=== PATIENT | male | born 1970 | race Caucasian/White ===

== ENCOUNTER 2019-10-20 11:54 | Emergency (ER) | payer OTHER, SELFPAY ==
[2019-10-20 12:03] VITALS: BP 119/88; PULSE 92; RESP 16; TEMP 36.9; O2SAT 98
--- NOTE | 2019-10-20 12:29 | ED.ALLEREA ---
HPI - Allergic Reaction General Chief complaint: Allergic Reaction Stated complaint: allergic reaction to meds Time Seen by Provider: 10/20/19 12:18 Source: patient and RN notes reviewed Mode of arrival: ambulatory Limitations: no limitations History of Present Illness HPI narrative: Patient presents today planing of pruritic rash and facial swelling that began 5 days ago. Patient is allergic to latex. He was using some spray on latex at home around his pool and developed this rash and facial swelling. He subsequently developed some abdominal pain and went to the [facility] ER for treatment. He has history of angioedema in the past. This episode he was placed on 5 days of prednisone, 20 mg 3 times daily. He has not taken any of his doses today. He takes Joceline daily and has been taking Benadryl occasionally. His last dose was yesterday. He has been continuing to work outside with this rash and states the sun makes it worse. He denies any shortness of breath, difficulty swallowing, scratchiness in the throat currently. MD complaint: allergic reaction, hives and facial swelling Related Data Home Medications Medication Instructions Recorded Confirmed alprazolam 0.5 mg tablet 0.5 mg PO DAILY 03/28/19 10/20/19 omeprazole magnesium 20 mg 20 mg PO DAILY 03/28/19 10/20/19 capsule,delayed release paroxetine HCl 20 mg PO DAILY 10/20/19 10/20/19 Allergies Allergy/AdvReac Type Severity Reaction Status Date / Time latex Allergy Hives Verified 10/20/19 12:09 Review of Systems Review of Systems: Narrative: CONSTITUTIONAL: Denies body aches, fever, chills, or sweats. EYES: Denies visual changes, redness, or discharge. ENT: Denies rhinorrhea, congestion, sore throat, or otalgia.+ Facial swelling CARDIOVASCULAR: Denies chest pain, palpitations, or edema. RESPIRATORY: Denies cough or dyspnea. GASTROINTESTINAL: Denies abdominal pain, nausea, vomiting, or diarrhea. GENITOURINARY: Denies dysuria or hematuria. SKIN: Denies wounds.+ Pruritic rash MUSCULOSKELETAL: Denies back pain, joint pain, or myalgia. NEUROLOGIC: Denies headache, numbness, tingling, or weakness. PSYCH: Denies depression or anxiety. [facility] Past Medical History Medical History (Updated 10/20/19 @ 12:46 by Susan Mcintosh, [facility], ) Anemia Angioedema Arthritis Ascending aortic aneurysm MCCAIN (dyspnea on exertion) Dyslipidemia Psychiatric disorder Family History Family History (Updated 12/07/17 @ 08:12 by DOCTOR UNKNOWN) Mother Family history of kidney disease Depression Family history of renal failure Father Family history of malignant neoplasm of esophagus Family history of malignant neoplasm Social History Social History Smoking status: Former smoker Alcohol intake: current Comments At time of signature, I have reviewed and agree with nursing past medical, surgical, social and family history unless otherwise noted. Please see nursing chart for further information. There is no relevant family history pertinent to the presenting complaint Exam Narrative: Exam Narrative: GENERAL: Well-appearing, well-nourished, and in no acute distress. HEAD: Normocephalic, atraumatic. EYES: EOMI. PERRL. Mild swelling circumorbitally bilaterally. No redness or drainage. Conjunctivae normal. ENT: Mucous membranes pink and moist. Nares clear. No rhinorrhea. TMs normal bilaterally. Throat normal. Uvula midline. NECK: Normal AROM. Supple. No lymphadenopathy. CHEST: No respiratory distress. Clear to auscultation. HEART: Regular rate and rhythm. No murmur appreciated. Normal peripheral pulses. ABDOMEN: Soft, nontender, nondistended, normal active bowel sounds. MUSCULOSKELETAL: No bony tenderness. EXTREMITIES: Normal range of motion. No edema. SKIN: Warm, dry. Capillary refill normal. Normal skin turgor. Mild urticarial rash, generalized. NEURO: No focal deficits. Alert and oriented x3. Gait steady. PSYCH: Normal affect. No signs of dep
== END 2019-10-20 12:47 | disposition home or self-care (01) ==
PROVIDERS: Emergency Provider Nurse Practitioner; PCP Emergency Medicine
DX: T78.3XXA Angioneurotic edema, initial encounter (principal)
CPT/HCPCS: 96372; 99213; G0463; J1100

== ENCOUNTER 2020-06-09 12:48 | Outpatient (CLI) | payer OTHER, SELFPAY | END 2020-06-09 12:49 | disposition home or self-care (01) | LOC: ANHAUDIO 12:55 → ANHAUDASC 13:36 | PROVIDERS: PCP Emergency Medicine; Visit Provider Emergency Medicine | DX: H93.13 Tinnitus, bilateral (principal) | CPT/HCPCS: 92557; 92567 ==

== ENCOUNTER 2020-08-12 17:43 | Emergency (ER) | payer OTHER, SELFPAY ==
--- NOTE | 2020-08-12 17:48 | ED.EAR ---
HPI - Ear Problem General Chief complaint: Ear Stated complaint: tinnitus/nausea/dizzy Time Seen by Provider: 08/12/20 17:49 Source: patient Mode of arrival: ambulatory Limitations: no limitations History of Present Illness HPI Narrative: Glendy is a 49 yo male with a PMH of anxiety, high cholesterol, GERD, depression, who comes to express care with complaints of tinnitus for 5 months and intermittent dizziness. states ear are hurting - 11/20 today Related Data Home Medications Medication Instructions Recorded Confirmed alprazolam 0.5 mg tablet 0.5 mg PO HS 03/28/19 08/12/20 paroxetine HCl 20 mg PO DAILY 10/20/19 08/12/20 fenofibrate 160 mg tablet 160 mg PO DAILY 04/30/20 08/12/20 cetirizine 10 mg PO DAILY 08/12/20 08/12/20 omeprazole 20 mg PO DAILY 08/12/20 08/12/20 Allergies Allergy/AdvReac Type Severity Reaction Status Date / Time latex Allergy Hives Verified 08/12/20 17:49 Review of Systems Review of Systems: Narrative: CONSTITUTIONAL: Denies fever, chills, sweats. EYES: Denies visual changes, redness, discharge. ENT: Denies rhinorrhea, congestion, sore throat, bilateral otalgia. CARDIOVASCULAR: Denies chest pain, palpitations, edema. RESPIRATORY: Denies dyspnea, wheezing, cough GASTROINTESTINAL: Denies abdominal pain, nausea, vomiting, diarrhea. GENITOURINARY: Denies dysuria, hematuria, abnormal discharge SKIN: Denies rash or itching. NEUROLOGIC: Denies numbness, or focal weakness.has vertigi PSYCHIATRIC: Denies anxiety or depression. [facility] Past Medical History Medical History (Updated 08/12/20 @ 18:06 by Brittney Venegas CNP) Anemia Angioedema Arthritis Ascending aortic aneurysm MCCAIN (dyspnea on exertion) Dyslipidemia Psychiatric disorder Tinnitus Family History Family History Mother Family history of kidney disease Depression Family history of renal failure Father Family history of malignant neoplasm of esophagus Family history of malignant neoplasm Social History Social History Smoking status: Current every day smoker Alcohol intake: current Comments At time of signature, I agree with nursing past medical, surgical, social and family history. There is no relevant family history pertinent to the presenting complaint. Exam Narrative: Exam Narrative: GENERAL: This is a well-nourished, well-developed patient, in mild distress. HEAD: normocephalic, atraumatic. EYES:. Sclera clear/white. Vision is grossly intact. EARS: External ears normal, auditory canals clear small amount of blood in ear canal bilateral (he flushed ears last few days). TMs normal without perforation. Some fluid behind R TM. Hearing grossly intact. NOSE: External nose normal without nasal discharge, nares without redness, no rhinorrhea. THROAT: Mucous membranes moist, NECK: Neck supple, non-tender CARDIOVASCULAR: Regular rate and rhythm without murmurs, gallops, or rubs. RESPIRATORY: Clear to auscultation. Breath sounds equal bilaterally. No wheezes, rales, or rhonchi. GASTROINTESTINAL: Abdomen soft, non-tender, SKIN: warm, intact with no suspicious lesions or rash, good texture and turgor. NEURO: awake, alert, and oriented to person, place and time. There were no obvious focal neurologic abnormalities. Steady gait. cranial nerves are grossly intact EXTREMITIES: Normal range of motion. BACK: Nontender without deformity Course Course Emergency Course: hx of vertigo- going to [employer] this month - he talked with pcp- 5 month hx of tinnitus, some nausea, pain Started on polymixin, zofran, meclizine instructed to hold off flushing ears and allow canals to heal Vital Signs Vital signs: Vital Signs Temperature 97.3 F L 08/12/20 17:53 Pulse Rate 85 08/12/20 17:53 Respiratory Rate 16 08/12/20 17:53 Blood Pressure 119/92 H 08/12/20 17:53 Pulse Oximetry 100 08/12/20 17:53 Temperatu
[2020-08-12 17:53] VITALS: BP 119/92; PULSE 85; RESP 16; TEMP 36.3; O2SAT 100
[2020-08-12 17:59] VITALS: BP 119/92; PULSE 85; RESP 16; TEMP 36.3; O2SAT 100
== END 2020-08-12 18:11 | disposition home or self-care (01) ==
PROVIDERS: Emergency Provider Nurse Practitioner; PCP Emergency Medicine
DX: H93.13 Tinnitus, bilateral (principal); H81.13 Benign paroxysmal vertigo, bilateral; M19.90 Unspecified osteoarthritis, unspecified site; E78.5 Hyperlipidemia, unspecified; F29 Unspecified psychosis not due to a substance or known physiological condition
CPT/HCPCS: 99213; G0463

== ENCOUNTER 2020-09-01 03:34 | Observation (INO) | payer OTHER, SELFPAY ==
[2020-09-01] VITALS (9 sets, daily range): BP systolic 112–121; BP diastolic 72–83; PULSE 63–87; RESP 18; TEMP 36–36.7; O2SAT 94–100; BMI 26.9
--- NOTE | 2020-09-01 | ECHO_ITS ---
Patient Info Name: Duran Klein Age: 49 years : 1970 Gender: Male Ht: 68 in Wt: 177 lbs BSA: 1.98 m2 HR: 74 bpm BP: 121 / 80 mmHg Technical Quality: Good Exam Date: 09/01/2020 10:13 AM Exam Location: [facility] Pulmonary Exam Room: 202 Patient Status: Inpatient Admit Date: 09/01/2020 Staff Ordering Physician: Oswaldo Leonardo DO Smash Piecer: Thersea Segovia RDCS Attending Provider: Jakob Reid MD Referring Physician: Jorden COLE; Exam Type: CA echo doppler color flow Study Info Indications - CHEST PAIN MCCAIN Complete two-dimensional, color flow and Doppler transthoracic echocardiogram is performed. Summary 1. Complete two-dimensional, color flow and Doppler transthoracic echocardiogram is performed. 2. Left ventricular chamber dimension is normal. 3. Left ventricular systolic function is normal, estimated at 60-65%. 4. The left ventricular diastolic function is grade I diastolic dysfunction. 5. E/e' 11 is mildly elevated. 6. Left atrial chamber dimension is mildly enlarged. 7. There is mild aortic valve regurgitation. 8. There is mild mitral valve regurgitation. 9. There is trace tricuspid valve regurgitation. 10. No pulmonary hypertension, estimated pulmonary arterial systolic pressure is 32 mmHg. 11. There is trace pulmonic regurgitation. Left Ventricle E/e' 11 is mildly elevated. Left ventricular chamber dimension is normal. Left ventricular systolic function is normal, estimated at 60-65%. The left ventricular diastolic function is grade I diastolic dysfunction. Right Ventricle Right ventricular systolic function is normal with normal TAPSE 1.8 cm. Right ventricular chamber dimension is normal. Left Atria Left atrial chamber dimension is mildly enlarged. Right Atria Right atrial chamber dimension is normal. Aortic Valve The aortic valve is trileaflet. There is no aortic valve stenosis. There is mild aortic valve regurgitation. Pulmonic Valve There is trace pulmonic regurgitation. Mitral Valve There is no mitral valve stenosis. There is mild mitral valve regurgitation. Tricuspid Valve There is trace tricuspid valve regurgitation. No pulmonary hypertension, estimated pulmonary arterial systolic pressure is 32 mmHg. Pericardium/Pleural There is no pericardial effusion. Inferior Vena Cava Normal inferior vena cava with >50% collapse upon inspiration consistent with normal right atrial pressure, 5 mmHg. Aorta The aortic root size at the sinus of Valsalva is normal. Left Ventricular Outflow Tract Name Value Normal LVOT 2D LVOT Diameter 2.1 cm LVOT Doppler LVOT Peak Gradient 5 mmHg LVOT Mean Gradient 3 mmHg LVOT VTI 24 cm LVOT VTI/AV VTI Ratio 1.1 LVOT Stroke Volume 83 ml LVOT CO 17.6 l/min LVOT CI 8.9 l/min/m2 Pulmonic Valve Name
--- NOTE | ~2020-09-01 | NM_ITS ---
EXAMINATION: NM hans stress w perfusion DATE: 09/01/2020 13:25 INDICATION: Chest pain. TECHNIQUE: Rest images were obtained following intravenous administration of 10.9 mCi Tc99m tetrofosm in (Myoview). The patient was infused intravenously with Lexiscan (regadenoson). Then, 33.8 mCi Tc99m tetrofosmin (Myoview) was administered intravenously, and stress images were obtained. Data was porfirio nstructed into short axis and horizontal and vertical long axis SPECT images. Gated SPECT images were also obtained. COMPARISON: Chest CT 06/09/2019 FINDINGS: There is no definite reversible or fixed perfusion abnormality to suggest ischemia or infar ction. There is no segmental wall motion abnormality. Left ventricular ejection fraction measures 6 9%. IMPRESSION: 1. No definite ischemia or infarct. 2. Normal left ventricular ejection fraction measuring 69%. Reviewed, dictated and finalized at location B.
--- NOTE | 2020-09-01 02:49 | PC.NURSE ---
This patient, Duran Klein, was admitted to IMU Room 202-01. Patient/family oriented to hospital policies and general routines including ID bracelet, bed and alarms, visiting hours, pain management, procedures, bathroom and other care routines, personal items, smoking policy, room service/diet, and visiting hours. Valuables list has been completed. Information on how to activate the Rapid Response Team has been discussed. Patient/Family are encouraged to report perceived risks to care and to ask questions if they do not understand what they are told or what they should do.
--- NOTE | 2020-09-01 03:01 | ECG_ITS ---
Measurements Intervals [place] Rate: 62 P: 14 MO: 190 QRS: 27 QRSD: 90 T: 30 QT: 382 QTc: 388 Interpretive Statements SINUS RHYTHM NORMAL ECG Electronically Signed On 09-03-2020 12:45:45 CDT by Oswaldo Leonardo D.O.
--- NOTE | 2020-09-01 03:39 | PM.IMHP ---
H&P: HPI History of Present Illness Date/Time: 09/01/20 03:39 Chief Complaint: Exertional chest pain over the past 5 days++ Narrative: This is a pleasant 49 year old male with known history of a 4 cm ascending thoracic aneurysm, hyperlipidemia, and depression who presented to the hospital as a direct admission from [facility] for chest pain. The patient presented to [facility] yesterday secondary to severe exertional chest pain for the past 5 days. The patient has noticed a pressure like midsternal chest pain that radiates across his chest with any exertion. Associated symptoms include palpitations, tachycardia, and shortness of breath. He denies any nausea, vomiting, dizziness, or diaphoresis. The patient denies any past history of CAD, stress testing, or angiography. He is known to vape but previously was smoking 1/4 ppd. He also previously was a heavy alcohol drinker in his 30s and 40s and quit drinking alcohol about 1 year ago. He denies any other symptoms such as cough, fever, abdominal pain, nausea, vomiting, dysuria, hematuria, diarrhea, rectal bleeding, or LE swelling. Dr. Leonardo, Cardiology has been consulted by ER provider at [facility]. CTA chest showed that the patient's ascending thoracic aneurysm has not increased over the past year. Review of Systems Review of Systems: All systems reviewed & are unremarkable except as noted in HPI and below PMFSH Past Medical History Medical History (Updated 09/01/20 @ 03:50 by Jakob Reid MD) Anemia Angioedema Arthritis Ascending aortic aneurysm Depression MCCAIN (dyspnea on exertion) Dyslipidemia Psychiatric disorder Tinnitus Surgical History Surgical History (Updated 09/01/20 @ 03:48 by Jakob Reid MD) H/O hernia repair Family History Family History Mother Family history of kidney disease Depression Family history of renal failure Father Family history of malignant neoplasm of esophagus Family history of malignant neoplasm Social History Social History Years smoked: 35 Smoking status: Current every day smoker Tobacco type: e-cigarettes/vaping Alcohol intake: never Drinks per week: 1 Substance use: never Spiritual care concerns: No Meds Home Medications and Allergies Home Medications Medication Instructions Recorded Confirmed Type alprazolam 0.5 mg tablet 0.5 mg PO HS PRN 03/28/19 09/01/20 History paroxetine HCl 20 mg PO DAILY 10/20/19 09/01/20 History fenofibrate 160 mg tablet 160 mg PO DAILY 04/30/20 09/01/20 History cetirizine 10 mg PO DAILY 08/12/20 09/01/20 History omeprazole 20 mg PO DAILY 08/12/20 09/01/20 History iron-vitamin B complex [B 1 tablet PO DAILY 09/01/20 09/01/20 History Complex-Iron] Allergies Allergy/AdvReac Type Severity Reaction Status Date / Time latex Allergy Hives Verified 08/12/20 17:49 Vital Signs Vital Signs - 24 hr 09/01/20 02:49 09/01/20 03:15 Temperature 36.6 C Pulse Rate 70 77 Respiratory Rate 18 Blood Pressure 115/75 Pulse Oximetry 100 Exam Const: General: cooperative, no acute distress, alert and awake Nutritional Appearance: well nourished Orientation/consciousness: patient oriented x3 HENMT: Head: normal to inspection General nose exam: Normal external nose present Face and sinus: normal facial exam Mouth: Yes Normal oral and palatal mucosa present and Yes oropharynx normal Eyes: Pupils: Equal, round and reactive pupils present EOM: EOMs intact bilaterally Neck: Neck: supple and no JVD Thyroid: thyroid normal Lymphatic: lymphadenopathy not noted Resp: Effort & Inspection: normal respiratory effort Auscultation: clear to auscultation bilaterally Cardio: Rate: regular rate Rhythm: regular rhythm Heart sounds: no murmurs GI: Inspection: normal to inspection Auscultation: normal bowel sounds Skin: General skin
[2020-09-01] MEDS: SODIUM CHLORIDE 0.9% IV 1,000 ML 100 ML IV CONT (03:59)
[2020-09-01] MEDS: LORazepam (*CRX) 0.5 MG TABLET PO (03:59)
[2020-09-01 04:35] LABS: Basophils Percent Auto 0.8 % (0.2-1.2); Eosinophils Absolute Auto 0.1 K/mm3 (0-0.3); Eosinophils Percent Auto 2.8 % (0-4.4); Hemoglobin 13.1 g/dL (14.0-18.0); Immature Granulocyte Absolute 0.01 K/mm3 (0.00-0.031); Immature Granulocyte Percent A 0.3 % (0-0.5); Lymphocytes Absolute Auto 1.49 K/mm3 (0.9-3.2); Lymphocytes Percent Auto 42.1 % (18.3-44.2); Mean Corpuscular HGB Conc 35.4 g/dl (32-36); Mean Corpuscular Hemoglobin 31.5 pg (26-34); Mean Corpuscular Volume 88.9 fl (80-100); Mean Platelet Volume 8.5 fl (7.4-10.4); Monocytes Absolute Auto 0.3 K/mm3 (0.1-0.6); Monocytes Percent Auto 8.8 % (2.6-8.5); Neutrophils Absolute Auto 1.6 K/mm3 (1.3-6.7); Neutrophils Percent Auto 45.2 % (45.5-73.1); Platelet Count Result 158 k/mm3 (150-375); Red Blood Count 4.16 M/mm3 (4.6-6.20); Red Cell Distribution Width 11.8 % (11.5-14.5); White Blood Count 3.5 K/mm3 (4.5-10.0)
[2020-09-01 04:45] LABS: Anion Gap 5 mmol/L (8-16); Blood Urea Nitrogen 19 mg/dL (9-20); Calcium 8.8 mg/dL (8.4-10.2); Carbon Dioxide 26 mmol/L (22-30); Chloride 107 mmol/L (98-107); Cholesterol 206 mg/dL (0-200); Estimated CRCL calculation 75 ml/min; Estimated Glomerular Filt Rate > 60; Glucose 100 mg/dL (75-110); HDL Direct 37 mg/dL; Magnesium 1.8 mg/dL (1.6-2.3); Potassium 3.9 mmol/L (3.4-5.0); Sodium 138 mmol/L (137-145); Triglycerides 234 mg/dL (<150)
[2020-09-01 04:56] LABS: LDL Cholesterol Direct 103 mg/dL
[2020-09-01 04:57] LABS: Troponin I < 0.012 ng/mL (0.000-0.034)
--- NOTE | 2020-09-01 07:06 | EST_ITS ---
Patient Info Name: Duran Klein Age: 49 years : 1970 Gender: Male Ht: 68 in Wt: 177 lbs BSA: 1.98 m2 HR: 79 bpm BP: 127 / 86 mmHg Exam Date: 09/01/2020 12:19 PM Exam Location: [facility] Stress Patient Status: Inpatient Admit Date: 09/01/2020 Staff Ordering Physician: Oswaldo Leonardo DO Attending Provider: Jakob Reid MD Exercise Technologist: Daniele Mishra RDCS, RT Exercise Physician: Oswaldo Leonardo DO Exam Type: CA stress hans w NM Study Info Indications R07.9 - Chest pain, unspecified A regadenoson stress test was performed. Summary 1. 1. Negative lexiscan stress test for ischemic ST changes by ECG criteria. 2. 2. Stable hemodynamics throughout the test. 3. 3. Nuclear scan to follow and will be reported separately. Please correlate with it. 4. 4. Patient is informed of the above results. Protocol: Lexiscan Stress ECG Details Stage: REST Duration (min): 2 min : 9 sec HR (bpm): 77 SBP (mmHg): 127 DBP (mmHg): 86 Stage: REST Duration (min): 5 min : 39 sec HR (bpm): 85 SBP (mmHg): 127 DBP (mmHg): 86 Stage: STAGE 1 Duration (min): 1 min : 0 sec HR (bpm): 118 SBP (mmHg): 136 DBP (mmHg): 77 Stage: RECOVERY Duration (min): 1 min : 0 sec HR (bpm): 114 SBP (mmHg): 136 DBP (mmHg): 77 Stage: RECOVERY Duration (min): 2 min : 0 sec HR (bpm): 108 SBP (mmHg): 136 DBP (mmHg): 77 Stage: RECOVERY Duration (min): 3 min : 0 sec HR (bpm): 102 SBP (mmHg): 132 DBP (mmHg): 79 Stage: RECOVERY Duration (min): 3 min : 39 sec HR (bpm): 103 SBP (mmHg): 132 DBP (mmHg): 79 Rest HR: 85 bpm Peak HR: 120 bpm Rest Sys BP: 127 mmHg Peak Sys BP: 136 mmHg Max Pred HR: 169 bpm % Max Pred HR: 71 % Target HR: 144 bpm Max RPP: 16,320 bpm*mmHg Termination Reason: Completed protocol Cardiac Symptoms: Shortness of breath Total Time: 1 min : 0 sec Rest Ann BP: 86 mmHg Peak Ann BP: 77 mmHg Total Dose: 0.4 mg Resting ECG Sinus rhythm. Stress ECG No ST changes. Arrhythmias None. Report Signatures
--- NOTE | 2020-09-01 07:07 | ECG_ITS ---
Measurements Intervals [place] Rate: 73 P: 7 OR: 160 QRS: 40 QRSD: 93 T: 38 QT: 361 QTc: 400 Interpretive Statements SINUS RHYTHM NORMAL ECG Electronically Signed On 09-01-2020 10:25:38 CDT by Oswaldo Leonardo D.O.
--- NOTE | 2020-09-01 07:48 | PM.CNCAR ---
Assessment and Plan Assessment and plan (1) Chest pain: Qualifiers: Chest pain type: unspecified Qualified Code(s): R07.9 - Chest pain, unspecified Code(s): R07.9 - Chest pain, unspecified Status: Acute Assessment and Plan: Atypical. Could be CAD or GERD or other. He has been ruled out for TN by series of troponins and EKG. Obtain Lexiscan myoview stress test and echo. (2) Smoking: Code(s): F17.200 - Nicotine dependence, unspecified, uncomplicated Status: Acute Assessment and Plan: Counseled regarding smoking cessation. (3) Dyslipidemia: Code(s): E78.5 - Hyperlipidemia, unspecified Status: Chronic Assessment and Plan: On Fenofibrate. (4) Ascending aortic aneurysm: Code(s): I71.2 - Thoracic aortic aneurysm, without rupture Status: Chronic Assessment and Plan: Stable. History of Present Illness History of Present Illness Consult date/time: 09/01/20 07:48 Reason for consult: Chest pain. Patient is a 49 yr old man who is my regular cardiology patient presents to ER for evaluation for chest pain. He has a history of dyslipidemia, ascending aortic aneurysm, smoking, iron deficiency anemia. He initially presented to [facility] and subsequently transferred here late last night for chest pain. He reports chest pain started about 4-5 days ago and is intermittent. He describes it as a fluttering then chest pressure over his mid chest up to 4/10 in intensity with associated sob. He is not currently having it now. Troponins are negative and so is the EKG. He had a CTA of chest at [place] that showed similar ascending aortic aneurysm and chronic moderate hiatal hernia. He smokes 3 cigarettes a day and vapes. He is walking regularly without any problems. Denies chest pain, back pain, sob, orthopnea, edema. Cardiovascular Procedures Echo/MUGA:: Echo (EF 50-55%, mild AI/MR/TR, trace PI.) - 03/15/2018 Electrophysiology:: EKG (Sinus rhythm.) - 11/14/2017 Stress Tests:: Chest CT (Stable mild ascending aortic aneurysm at 4.3 cm.) - 05/29/[address] (Mild fusiform ascending aortic aneurysm at 4.1 cm. Mod-large paraesophageal hernia.) - 11/14/2017 Abd/Pelvis CT (Hiatal hernia.) - 11/04/2017 Reason For Visit: Chest pain Review of Systems Review of Systems: All systems reviewed & are unremarkable except as noted in HPI and below Constitutional: Constitutional: Reports as per HPI, Denies chills and Denies fever(s) Cardiovascular: Cardiovascular: Reports as per HPI, Reports chest pain, Reports irregular heart rhythm, Denies leg edema and Denies lightheadedness Respiratory: Respiratory: Reports as per HPI and Reports dyspnea Gastrointestinal: Gastrointestinal: Reports as per HPI and Reports heartburn Genitourinary: Genitourinary: Reports as per HPI and Denies dysuria Musculoskeletal: Musculoskeletal: Reports as per HPI Neurologic: Reports as per HPI, Denies dizziness and Denies syncope [facility] Past Medical History Medical History (Updated 09/01/20 @ 03:50 by Jakob Reid MD) Anemia Angioedema Arthritis Ascending aortic aneurysm Depression MCCAIN (dyspnea on exertion) Dyslipidemia Psychiatric disorder Tinnitus Surgical History Surgical History (Updated 09/01/20 @ 03:48 by Jakob Reid MD) H/O hernia repair Family History Family History Mother Family history of kidney disease Depression Family history of renal failure Father Family history of malignant neoplasm of esophagus Family history of malignant neoplasm Social History Social History Years smoked: 35 Smoking status: Current every day smoker Tobacco type: e-cigarettes/vaping Alcohol intake: never Drinks per week: 1 Substance use: never Spiritual care concerns: No Meds Home Medications and Allergies Home Medications Medication I
[2020-09-01] MEDS: PARoxetine 20 MG TABLET PO (08:24)
[2020-09-01] MEDS: LORATADINE 10 MG TABLET PO (08:24)
[2020-09-01] MEDS: ENOXAPARIN 40 MG/0.4 ML SYRINGE SUB-Q (08:25)
[2020-09-01] MEDS: FENOFIBRATE 160 MG TABLET PO (08:25)
[2020-09-01] MEDS: PANTOPRAZOLE 40 MG TABLET PO (08:25)
--- NOTE | 2020-09-01 15:35 | PM.DS ---
DS: Admitting Diagnosis Admitting Diagnosis Admitting Diagnosis: Chest pain rule out ACS Tobacco use disorder Major depressive disorder Anemia Hyperlipidemia Thoracic aortic aneurysm DS: Discharge Diagnosis Discharge Diagnosis (1) Chest pain: Qualifiers: Chest pain type: unspecified Qualified Code(s): R07.9 - Chest pain, unspecified Code(s): R07.9 - Chest pain, unspecified Status: Acute (2) Smoking: Code(s): F17.200 - Nicotine dependence, unspecified, uncomplicated Status: Acute (3) Dyslipidemia: Code(s): E78.5 - Hyperlipidemia, unspecified Status: Chronic (4) Ascending aortic aneurysm: Code(s): I71.2 - Thoracic aortic aneurysm, without rupture Status: Chronic (5) Depression: Qualifiers: Depression Type: unspecified Qualified Code(s): F32.9 - Major depressive disorder, single episode, unspecified Code(s): F32.9 - Major depressive disorder, single episode, unspecified Status: Chronic (6) Anemia: Code(s): D64.9 - Anemia, unspecified Status: Acute DS: Summary Hospital Course Reason for hospitalization: Chest pain Hospital Course: 49-year-old male admitted to the hospital with exertional chest pain. He underwent formal stress test evaluation under the guidance of Chief Cardiopulmonary Technologist Dr. Leonardo and echocardiogram was also performed. Both tests were reviewed by cardiology and acute coronary syndrome was ruled out. Patient was subsequently discharged home in stable condition with indications to follow up with cardiology in 1 week for ongoing care in the outpatient setting. Status at Discharge Functional status at discharge: independent ambulation Overall status at discharge: patient is back to baseline Time Spent with Patient Time attestation: Total time spent providing and/or coordinating discharge services: Time spent: Less than 30 minutes DS: Data Data Completed and Pending Labs on day of discharge: Labs from last 24 hours 09/01/20 09/01/20 09/01/20 04:28 04:28 04:28 WBC RBC Hgb Hct MCV MCH MCHC RDW Plt Count MPV Immature Gran % (Auto) Neut % (Auto) Lymph % (Auto) [place] % (Auto) Eos % (Auto) Baso % (Auto) Lymph # (Auto) [place] # (Auto) Eos # (Auto) Baso # (Auto) Abs Immat Gran (auto) Absolute Neuts (auto) Absolute Nucleated RBC Nucleated RBC % Sodium 138 Potassium 3.9 Chloride 107 Carbon Dioxide 26 Anion Gap 5 L BUN 19 Creatinine 1.00 Estim Creat Clear Calc 75 Estimated GFR > 60 Glucose 100 Calcium 8.8 Magnesium 1.8 Troponin I < 0.012 Triglycerides 234 H Cholesterol 206 H LDL Cholesterol Direct 103 HDL Direct 37 09/01/20 04:28 WBC 3.5 L RBC 4.16 L Hgb 13.1 L Hct 37.0 L MCV 88.9 MCH 31.5 MCHC 35.4 RDW 11.8 Plt Count 158 MPV 8.5 Immature Gran % (Auto) 0.3 Neut % (Auto) 45.2 L Lymph % (Auto) 42.1 [place] % (Auto) 8.8 H Eos % (Auto) 2.8 Baso % (Auto) 0.8 Lymph # (Auto) 1.49 [place] # (Auto) 0.3 Eos # (Auto) 0.1 Baso # (Auto) 0.0 Abs Immat Gran (auto) 0.01 Absolute Neuts (auto) 1.6 Absolute Nucleated RBC 0.0 Nucleated RBC % 0.0 Sodium Potassium Chloride Carbon Dioxide Anion Gap BUN Creatinine Estim Creat Clear Calc Estimated GFR Glucose Calcium Magnesium Troponin I Triglycerides Cholesterol LDL Cholesterol Direct HDL Direct Discharge Plan Discharge Attending physician on discharge: Ghada Martinez Consulting providers: Oswaldo Leonardo Discharging Clinician: Ghada Martinez Anticipated Discharge Date/Time: 09/01/20 15:32 Patient Disposition: Home, Self-Care Activity: as tolerated Diet: as tolerated Patient Instructions: Antibiotic Form, How to Stop Smoking (DC) Patient Language: Tajik Stand Alone Forms: General Discharge Information Follow-up/Referrals: Oswaldo Leonardo, DO [
== END 2020-09-01 16:10 | disposition home or self-care (01) ==
PROVIDERS: Admitting Provider Family Medicine; PCP Emergency Medicine; Visit Provider Hospitalist
DX: R07.9 Chest pain, unspecified (principal); F17.210 Nicotine dependence, cigarettes, uncomplicated; E78.5 Hyperlipidemia, unspecified; I71.2 Thoracic aortic aneurysm, without rupture; D64.9 Anemia, unspecified; F32.9 Major depressive disorder, single episode, unspecified
CPT/HCPCS: 36415; 78452; 80048; 80061; 83735; 84484; 85025; 93005; 93017; 93306; 96372; A9270; A9502; G0378; G0379; J1650; J2785; J7030

== ENCOUNTER 2021-05-18 08:02 | Outpatient (CLI) | payer BC, SELFPAY ==
--- NOTE | ~2021-05-18 | CT_ITS ---
EXAMINATION: CTA chest DATE: 05/18/2021 08:31 INDICATION: Thoracic aortic aneurysm without rupture. TECHNIQUE: Computed tomographic angiography (CTA) of the chest was performed without and with 100 mL Omnipaque-350 intravenous contrast. Volume-rendered 3D-reconstructions of the aorta and large arterie s were constructed by the technologist on a separate workstation. Automated exposure control and iter ative reconstruction technique were employed. The dose-length product was 349.81 mGy-cm. COMPARISON: Chest CT dated 06/09/2019 FINDINGS: Fusiform ascending thoracic aortic aneurysm measuring up to 4.2 x 4.3 similar maximal abnormality ort hogonal to the axis of flow on coronal and sagittal images respectively. This tapers to normal calibe r at the aortic arch and descending thoracic aorta. No aortic dissection. Large sliding-type hiatal h ernia with organoaxial gastric volvulus. There is adjacent compressive atelectasis at the medial aspe ct of the bilateral lower lobes. Additional mild linear discoid atelectasis in the left lower lobe. N o suspicious pulmonary nodules, pneumonia, pulmonary edema or pleural effusion. Heart size is normal. Atherosclerotic coronary artery calcification. No pericardial effusion. No pathologically enlarged t horacic lymphadenopathy. 8 mm cyst at the upper pole of the right kidney. Visualized upper abdomen is otherwise unremarkable. Mild thoracic spondylosis. IMPRESSION: 1. No significant change in a 4.2 x 4.1 cm fusiform ascending thoracic aortic aneurysm without dissec tion 2. Large sliding-type hiatal hernia. Reviewed, dictated and finalized at location B. ING MANAGEMENT CONSULTING MANAGER IMPRESSION: 1. No significant change in a 4.2 x 4.1 cm fusiform ascending thoracic aortic a neurysm without dissection 2. Large sliding-type hiatal hernia.
== END 2021-05-18 08:03 | disposition home or self-care (01) ==
LOC: ANHIMG 08:04
PROVIDERS: Visit Provider Internal Medicine Cardiovascular Disease
DX: I71.2 Thoracic aortic aneurysm, without rupture (principal); K44.9 Diaphragmatic hernia without obstruction or gangrene
CPT/HCPCS: 71275; Q9967

== ENCOUNTER 2023-08-27 14:50 | Outpatient (CLI) | payer BC, SELFPAY ==
--- NOTE | ~2023-08-27 | CT_ITS ---
EXAMINATION: CTA chest DATE: 08/27/2023 15:20 INDICATION: Thoracic aortic aneurysm. TECHNIQUE: Computed tomographic angiography (CTA) of the chest was performed without and with 100 mL Omnipaque-350 intravenous contrast. Automated exposure control and iterative reconstruction technique were employed. The dose-length product was 571.89 mGy-cm. Maximum intensity projection 3D-reconstruc tions of the aorta and other arteries were constructed by the technologist on a separate workstation. COMPARISON: None. FINDINGS: There is mild atelectasis bilaterally. No pleural effusion. Cardiomegaly is noted. There ar e coronary artery calcifications. No pericardial effusion. There is a large sliding hiatal hernia. Th ere are and measures 3.6 cm at the sinuses of Valsalva, 3.5 cm at the sinotubular junction, 4.3 cm in the mid ascending aorta, 2.7 cm at the aortic isthmus, and 2.7 cm in the mid descending aorta. There is mild aortic atherosclerosis. There is mild thoracic spondylosis. IMPRESSION: 1. Ectasia of ascending aorta measuring 4.3 cm. 2. Large sliding hiatal hernia. Reviewed, dictated and finalized at location E.
== END 2023-08-27 14:51 | disposition home or self-care (01) ==
PROVIDERS: PCP Family Medicine; Visit Provider Internal Medicine Cardiovascular Disease
DX: I71.20 Thoracic aortic aneurysm, without rupture, unspecified (principal); K44.9 Diaphragmatic hernia without obstruction or gangrene
CPT/HCPCS: 71275; Q9967

== ENCOUNTER 2023-10-18 17:59 | Emergency (ER) | payer BC, SELFPAY ==
[2023-10-18 18:11] VITALS: BP 115/88; PULSE 107; RESP 18; TEMP 37; O2SAT 97
--- NOTE | 2023-10-18 18:38 | ED.SKABFB ---
HPI - Skin/Abscess/Foreign Bdy General Chief complaint: Wound/Laceration Stated complaint: SPIDER BITE Time Seen by Provider: 10/18/23 18:31 Source: patient and RN notes reviewed Mode of arrival: ambulatory Limitations: no limitations History of Present Illness HPI narrative: Patient presents today with a possible insect bite to the dorsum of his right hand at the base of the 4th finger. Patient did not feel anything bite him, but is assuming it is a spider bite because he does not like spiders. Reports the area does itch, but is not painful. He tried some steroid cream that he has for his psoriasis once today approximately 7 hours ago, and it has not provided him any relief. He also takes Zyrtec daily for his allergies. Related Data Allergies Allergy/AdvReac Type Severity Reaction Status Date / Time latex Allergy Hives Verified 10/18/23 18:21 Review of Systems Review of Systems: CONSTITUTIONAL: Denies body aches, fever, chills, or sweats. EYES: Denies visual changes, redness, or discharge. ENT: Denies rhinorrhea, congestion, sore throat, or otalgia. CARDIOVASCULAR: Denies chest pain, palpitations, or edema. RESPIRATORY: Denies cough or dyspnea. GASTROINTESTINAL: Denies abdominal pain, nausea, vomiting, or diarrhea. GENITOURINARY: Denies dysuria or hematuria. SKIN: + possible spider bite MUSCULOSKELETAL: Denies back pain, joint pain, or myalgia. NEUROLOGIC: Denies headache, numbness, tingling, or weakness. PSYCH: Denies depression or anxiety. PMFSH Past Medical History Medical History Anemia Angioedema Annual physical exam Anxiety Arthritis Ascending aortic aneurysm B12 deficiency Depression [place]AIN (dyspnea on exertion) Dyslipidemia GERD (gastroesophageal reflux disease) Hemorrhoids Hiatal hernia Psychiatric disorder Rectal bleeding Screening for prostate cancer Tinnitus Surgical History Surgical History H/O hernia repair Family History Family History Mother Family history of kidney disease Depression Family history of renal failure Father Family history of malignant neoplasm of esophagus Family history of malignant neoplasm Social History Social History Years smoked: 35 Smoking status: Current every day smoker Tobacco type: e-cigarettes/vaping Alcohol intake: never Drinks per week: 1 Substance use: never Do You Feel Safe in your Home?: Yes Lack of Transportation: No Lack of Food: Never True Current Housing: I Have Housing Concerned About Future Housing: No Difficulty Paying Gas/Electric Bills: No Difficulty Paying for Meds: No Currently Unemployed: No Education: Don't Know Difficulty w/ Childcare or Family Care: No Spiritual care concerns: No Comments At time of signature, I have reviewed and agree with nursing past medical, surgical, social and family history unless otherwise noted. Please see nursing chart for further information. There is no relevant family history pertinent to the presenting complaint Exam Narrative: GENERAL: Well-appearing, well-nourished, and in no acute distress. HEAD: Normocephalic, atraumatic. EYES: EOMI. No redness or drainage. Conjunctivae normal. ENT: Mucous membranes pink and moist. NECK: Normal AROM. CHEST: No respiratory distress. EXTREMITIES: Normal range of motion. No edema. SKIN: Warm, dry. Capillary refill normal. Normal skin turgor. Cluster of 4-5 pink circular lesions to the base of the 4th finger on the dorsum of the right hand, each measuring approximately 3 mm, and scabbed in the center. These are consistent with tiny insect bites. No edema, fluctuance, induration noted. NEURO: No focal deficits. Alert and oriented x3. Gait steady. PSYCH: Normal affect. No si
== END 2023-10-18 18:49 | disposition home or self-care (01) ==
PROVIDERS: Emergency Provider Nurse Practitioner; PCP Family Medicine
DX: S60.561A Insect bite (nonvenomous) of right hand, initial encounter (principal); W57.XXXA Bitten or stung by nonvenomous insect and other nonvenomous arthropods, initial encounter; F17.290 Nicotine dependence, other tobacco product, uncomplicated; M19.90 Unspecified osteoarthritis, unspecified site; E78.5 Hyperlipidemia, unspecified; F41.9 Anxiety disorder, unspecified; F32.A Depression, unspecified
CPT/HCPCS: 99211; G0463